=== PATIENT | male | born 1965 | race Asian ===

== ENCOUNTER 2016-06-01 16:47 | Emergency (ER) | payer MEDICARE ==
[~2016-06-01] VITALS: Ht 160 cm; Wt 74.8 kg
--- NOTE | 2016-06-01 16:47 | NUR ---
PLACED IN BED 1, TRIAGED AT BEDSIDE
--- NOTE | 2016-06-01 16:50 | NUR ---
DR. NYE AT BEDSIDE
[2016-06-01 16:54] VITALS: BP 143/89; PULSE 89; RESP 16; TEMP 98.2; O2SAT 99
--- NOTE | 2016-06-01 16:55 | NUR ---
Pt bib EMS c/o syncope.Pt AAOx4 denies previod med hx. Pt has no acute distress noted at this time.Pt's friend that witnessed syncopal episode at bedside.
[2016-06-01 17:23] LABS: BASOPHILS # (AUTO) 0.1 K/uL (0.0-0.2); BASOPHILS % (AUTO) 1.2 % (0.0-2.0); EOSINOPHILS # (AUTO) 0.2 K/uL (0.0-0.4); EOSINOPHILS % (AUTO) 3.5 % (0.0-4.0); HEMATOCRIT 41.5 % (36-54); HEMOGLOBIN 14.3 g/dL (14.0-18.0); LYMPHOCYTES # (AUTO) 2.1 K/uL (1.0-5.5); MEAN CORPUSCULAR HEMOGLOBIN 32 pg (27-31); MEAN CORPUSCULAR HGB CONC 34 % (32-36); MEAN CORPUSCULAR VOLUME 94 fL (79.0-98.0); MONOCYTES # (AUTO) 0.7 K/uL (0.0-1.0); MONOCYTES % (AUTO) 10.5 % (1.7-9.3); NEUTROPHILS # (AUTO) 3.4 K/uL (1.8-7.7); NEUTROPHILS % (AUTO) 51.8 % (40.0-70.0); PLATELET COUNT (AUTO) 215 K/uL (130-430); RED BLOOD CELL COUNT(AUTO) 4.44 MIL/uL (4.2-6.2); RED CELL DISTRIBUTION WIDTH 12.5 % (9.0-15.0); WHITE BLOOD COUNT (AUTO) 6.5 K/uL (4.8-10.8)
[2016-06-01 17:29] LABS: SALICYLATE 3 mg/dL (3-30)
--- NOTE | 2016-06-01 17:30 | NUR ---
Patient transported to radiology via [place], accompanied by rad staff.
[2016-06-01 17:32] LABS: ANION GAP 5 (5-15); CALCIUM 8.4 mg/dL (8.4-11.0); CHLORIDE 106 mmol/L (98-107); CREATININE 0.75 mg/dL (0.55-1.30); GLUCOSE 130 mg/dL (70-99); POTASSIUM 3.6 mmol/L (3.5-5.1); SODIUM SERUM 138 mmol/L (136-145); UREA NITROGEN, BLOOD 15 mg/dL (8-21)
[2016-06-01 17:35] LABS: GFR AFRICAN AMERICAN 141 mL/min (>90)
[2016-06-01 17:37] LABS: ALANINE AMINOTRANSFERASE 32 U/L (12-78); ALBUMIN 3.7 g/dL (3.4-4.8); ASPARTATE AMINOTRANSFERASE 9 U/L (10-37); TOTAL BILIRUBIN 0.2 mg/dL (0.0-1.0); TOTAL PROTEIN, SERUM 7.2 g/dL (6.4-8.3)
[2016-06-01 17:39] LABS: ACETAMINOPHEN < 1 ug/mL (1-30); ALCOHOL, BLOOD < 3 mg/dL (<10)
--- NOTE | 2016-06-01 17:40 | NUR ---
Pt returned fro mrad dept tolerated well
--- NOTE | 2016-06-01 18:00 | NUR ---
Pt ambulated to restroom steady gait w/o assist.Urine specimen collected and sent.
[2016-06-01 18:12] LABS: BILIRUBIN,URINE NEGATIVE (NEGATIVE); BLOOD, URINE NEGATIVE (NEGATIVE); CLARITY/URINE CLEAR (CLEAR); COLOR,URINE YELLOW (YELLOW); GLUCOSE,URINE NEGATIVE (NEGATIVE); KETONES,URINE NEGATIVE (NEGATIVE); LEUKOCYTE ESTERASE ,URINE NEGATIVE (NEGATIVE); NITRITE, URINE NEGATIVE (NEGATIVE); PROTEIN URINE NEGATIVE (NEGATIVE); UROBILINOGEN,URINE 0.2 (0.2-1.0)
[2016-06-01 18:40] VITALS: BP 140/86; PULSE 88; RESP 16; TEMP 98; O2SAT 99
[2016-06-01 18:40] LABS: URINE AMPHETAMINE NEGATIVE (NEG <=500)
--- NOTE | 2016-06-01 18:40 | NUR ---
Patient given written and verbal discharge instructions and verbalizes understanding. ER MD discussed with patient the results and treatment provided. Given copies of tests performed in ER. Patient in stable condition. ID arm band removed. Patient educated on pain management and to follow up with PMD. Pain Scale 0. Opportunity for questions provided and answered.
[2016-06-01 18:41] LABS: BARBITURATE, URINE POSITIVE (NEG <=200); BENZODIAZEPINE, URINE NEGATIVE (NEG <=150); CANNABINOID, URINE NEGATIVE (NEG <=50); COCAINE, URINE NEGATIVE (NEG <=150); METHAMPHETAMINES SCREEN,URINE NEGATIVE (NEG <=500); OPIATE, URINE NEGATIVE (NEG <=100); PHENCYCLIDINE SCREEN,URINE NEGATIVE (NEG <=25); UR TRICYCLIC ANTIDEPRESSANTS NEGATIVE (NEG <=300); URINE METHADONE NEGATIVE (NEG <=200); URINE OXYCODONE SCREEN NEGATIVE (NEG <=100); URINE PROPOXYPHENE SCREEN NEGATIVE (NEG <=300)
== END 2016-06-01 18:40 | disposition home or self-care (01) ==
LOC: SED 16:47
DX: R55 Syncope and collapse (principal); F19.90 Other psychoactive substance use, unspecified, uncomplicated
CPT/HCPCS: 36415; 70450; 80053; 80307; 81003; 84484; 85025; 93005; 99285; G0480; G0481; G0482